=== PATIENT | female | born 1995 | race Caucasian/White ===

== ENCOUNTER 2016-06-24 10:12 | Emergency (ER) | payer OTHER ==
[~2016-06-24] VITALS: Ht 157.5 cm; Wt 54.4 kg
[2016-06-24 10:21] VITALS: BP 136/83
--- NOTE | 2016-06-24 11:26 | NUR ---
PT BIBA TO BED 4
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
--- NOTE | 2016-06-24 12:06 | NUR ---
Patient being evaluated by physician at bedside.
--- NOTE | 2016-06-24 12:19 | NUR ---
Patient w/c assisted to bathroom to provide UA.
--- NOTE | 2016-06-24 12:25 | NUR ---
Pt brought back from the restroom and did not provide a UA. Pt states "I accidently forgot to pee in the cup." x-ray made aware.
--- NOTE | 2016-06-24 12:36 | NUR ---
Patient taken to X-RAY via w/c.
--- NOTE | 2016-06-24 12:48 | NUR ---
Pt returned from x-ray and placed in bed 4.
[2016-06-24] MEDS ORDERED: BACITRACIN OINT 500 UNITS/GM PKT TP ONE (13:40)
--- NOTE | 2016-06-24 13:44 | NUR ---
Dr. Hernández re-evaluating patient at bedside.
[2016-06-24 14:12] VITALS: BP 114/73
--- NOTE | 2016-06-24 14:13 | NUR ---
Chart checked and completed. The patient's care was reviewed and supervised by Daniel Pizarro RN.
== END 2016-06-24 14:12 | disposition home or self-care (01) ==
LOC: MED 10:12
DX: S06.0X9A Concussion with loss of consciousness of unspecified duration, initial encounter (principal); S81.012A Laceration without foreign body, left knee, initial encounter; S93.401A Sprain of unspecified ligament of right ankle, initial encounter; S70.211A Abrasion, right hip, initial encounter; V89.2XXA Person injured in unspecified motor-vehicle accident, traffic, initial encounter; Y93.89 Activity, other specified; Y92.89 Other specified places as the place of occurrence of the external cause; Y99.8 Other external cause status

== ENCOUNTER 2018-02-02 00:10 | Inpatient (IN) | payer SELFPAY ==
[~2018-02-02] VITALS: Ht 160 cm; Wt 60.4 kg
[2018-02-02 00:10] VITALS: BP 120/85
--- NOTE | 2018-02-02 00:14 | NUR ---
PT JASON ALS. TAKEN TO BED 1
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
--- NOTE | 2018-02-02 01:30 | NUR ---
ASSUMED CARE OF PT AT THIS TIME. PT RESTING COMFORTABLY, CONVERSING NORMALLY W/ FAMILY AT BEDSIDE. PT AWAITS LAB RESULTS AND MD DISPOSITION. NAD. VSS. WILL CONTINUE TO MONITOR.
[2018-02-02 02:10] LABS: HEMATOCRIT 39.8 % (36-48); HEMOGLOBIN 12.9 g/dL (12.0-16.0); MEAN CORPUSCULAR HEMOGLOBIN 30 pg (27-31); MEAN CORPUSCULAR HGB CONC 33 g/dL (33-37); MEAN CORPUSCULAR VOLUME 91.4 fL (80-94); PLATELET COUNT (AUTO) 344 K/uL (140-450); RED BLOOD CELL COUNT(AUTO) 4.36 MIL/uL (4.20-5.40); WHITE BLOOD COUNT (AUTO) 21.8 K/uL (4.8-10.8)
[2018-02-02 02:15] LABS: ANION GAP 7.9 (8-16); CARBON DIOXIDE 29.3 mmol/L (21-32); CREATININE 1.2 mg/dL (0.6-1.3); POTASSIUM 3.2 mmol/L (3.5-5.1)
[2018-02-02 02:18] LABS: EOSINOPHILS % (MANUAL) 1 % (0-4); LYMPHOCYTES % (MANUAL) 13 % (20-46); MONOCYTES % (MANUAL) 4 % (5-12)
[2018-02-02 02:21] LABS: ALBUMIN 3.9 g/dL (3.4-5.0); TOTAL BILIRUBIN 0.3 mg/dL (0.0-1.0)
[2018-02-02] MEDS ORDERED: NACL 0.9% 1,000 ML IV ONE (02:40)
[2018-02-02] MEDS ORDERED: diphenhydrAMINE 50 MG CAP PO ONE (02:40)
[2018-02-02] MEDS ORDERED: DEXAMETHASONE 10 MG/ML VIAL IVP ONE (02:40)
[2018-02-02] MEDS ORDERED: FAMOTIDINE 20 MG TAB PO ONE (02:40)
[2018-02-02 02:52] LABS: APPEARANCE,URINE SL CLOUDY (CLEAR); BILIRUBIN,URINE NEGATIVE (NEGATIVE); BLOOD, URINE NEGATIVE (NEGATIVE); COLOR,URINE YELLOW (YELLOW); LEUKOCYTE ESTERASE ,URINE NEGATIVE (NEGATIVE); NITRITE, URINE NEGATIVE (NEGATIVE); UGLUCOSE NEGATIVE (NEGATIVE)
[2018-02-02] MEDS ORDERED: NACL 0.9% 1,000 ML IV SCH (02:56)
[2018-02-02] MEDS ORDERED: LORazepam 2 MG/ML VIAL IM/IVP PRN (03:00)
[2018-02-02] MEDS ORDERED: HYDROcodone/APAP 5/325 MG 1 TAB TAB PO PRN (03:00)
[2018-02-02] MEDS ORDERED: DOCUSATE SODIUM 100 MG GELCAP PO PRN (03:00)
[2018-02-02] MEDS ORDERED: MORPHINE SULFATE 2 MG/ML SYR IVP PRN (03:00)
[2018-02-02] MEDS ORDERED: ZOLPIDEM 5 MG TAB PO PRN (03:00)
[2018-02-02] MEDS ORDERED: ONDANSETRON 4 MG/2 ML VIAL IM/IVP PRN (03:00)
[2018-02-02] MEDS ORDERED: ACETAMINOPHEN 325 MG TAB PO PRN (03:00)
--- NOTE | 2018-02-02 03:45 | NUR ---
Patient will be admitted to [facility]. Admitted to ICU. Will go to room 3. Belongings list completed. Report to CHAPARRO BARTON.
--- NOTE | 2018-02-02 03:50 | NUR ---
PATIENT TRANSFERRED FROM ER TO ICU BED 5 VIA GURNEY WITH 2 ASSISTANCE. PATIENT AAO X4, VERBALLY RESPONSIVE. ABLE TO AMBULATE. NO ACUTE DISTRESS NOTED. NO SOB ON ROOM AIR AT THIS TIME. PERIPHERAL LINE TO LEFT AC 20G, NO S/S INFECTION, INTACT AND PATENT. SKIN IS CLEAN AND INTACT. WILL CONTINUE TO MONITOR.
[2018-02-02] MEDS ORDERED: FAMOTIDINE 20 MG TAB PO SCH (04:00)
[2018-02-02] MEDS ORDERED: POTASSIUM CHLORIDE 10 MEQ TABER PO SCH (04:00)
[2018-02-02 04:02] VITALS: BP 117/68
--- NOTE | 2018-02-02 04:11 | NUR ---
ADMINISTERED SCHEDULED MEDICATIONS ORDERED, TOLERATED WELL. NO ACUTE DISTRESS NOTED. WILL CONTINUE TO MONITOR.
[2018-02-02 04:59] LABS: CHOL/HDL RATIO 2.8 (1-4.5); MAGNESIUM 1.8 mg/dL (1.8-2.4); PHOSPHORUS 2.9 mg/dL (2.5-4.9); THYROID STIMULATING HORMONE 3.99 uIU/mL (0.34-3.74)
[2018-02-02 06:00] VITALS: BP 110/65
[2018-02-02 06:07] LABS: PROTHROMBIN TIME 10.2 secs (10.8-13.4)
[2018-02-02] MEDS ORDERED: PANTOPRAZOLE 40 MG TABEC PO SCH (06:30)
--- NOTE | 2018-02-02 07:10 | NUR ---
REPORT GIVEN TO MORNING SHIFT RN FOR CONTINUITY OF CARE.
--- NOTE | 2018-02-02 07:25 | NUR ---
RECEIVED REPORT FROM [facility] RN. PT RESTING IN BED A/O X4. ABLE TO MAKE NEEDS KNOWN. SR ON MONITOR. LUNGS CLEAR ON AUSCULTATION. LEFT AC 20G. INTACT. NS RUNNING AT 60 ML/HR. ABDOMEN SOFT, ROUND AND NON-TENDER. ACTIVE BOWEL SOUND. DENIES PAIN, N/V. DENIES ITCHING, SOB AT THIS TIME. SKIN INTACT. HOB ELEVATED. BED IN LOW POSITION LOCKED. CONTINUE ON BEDSIDE MONITOR.
[2018-02-02 08:00] VITALS: BP 97/61
--- NOTE | 2018-02-02 08:34 | NUR ---
PATIENT HAS BEEN SCREENED AND CATEGORIZED LOW NUTRITION RISK. PATIENT WILL BE SEEN WITHIN 7 DAYS OF ADMISSION. 02/08/[address]
--- NOTE | 2018-02-02 09:40 | NUR ---
PATIENT REFUSED BLOOD DRAW AT THIS TIME. SHE STATED "I WANT TO GO HOME BEFORE 12 NOON". RISKS AND BENEFITS DISCUSSED, STILL REFUSING. REFUSAL FOR MEDICAL TREATMENT SIGNED. RESIDENT PHYSICIAN, DR. CHEEK MADE AWARE.
--- NOTE | 2018-02-02 10:29 | NUR ---
PT EVALUATED BY DR. CHEEK. DR. CHEEK EXPLAINED PT ABOUT AMA. Addendum: 02/02/18 at 1035 by Yu Oconnor RN PT WILL GO AMA PER DR. CHEEK.
[2018-02-02 10:36] VITALS: BP 95/61
--- NOTE | 2018-02-02 10:44 | NUR ---
PT SIGNED AMA PAPER. MADE AWARE ABOUT RISKS AND BENEFITS OF RECEIVING AND REFUSING TREATMENT. PT VERBALIZED UNDERSTANDING. STILL WANTS TO LEAVE AMA. PT SIGNED AMA FORM, KEPT IN THE CHART.
[2018-02-02 12:10] LABS: HEMATOCRIT 38.3 % (36-48); HEMOGLOBIN 12.8 g/dL (12.0-16.0); LYMPHOCYTES # (AUTO) 0.5 K/uL (2.5-16.5); LYMPHOCYTES % (AUTO) 5.2 % (20.5-51.1); MEAN CORPUSCULAR HEMOGLOBIN 31 pg (27-31); MEAN CORPUSCULAR HGB CONC 33 g/dL (33-37); MEAN CORPUSCULAR VOLUME 91.3 fL (80-94); MONOCYTES % (AUTO) 0.4 % (1.7-9.3); NEUTROPHILS # (AUTO) 9.7 K/uL (1.8-7.7); NEUTROPHILS % (AUTO) 94.4 % (42.2-75.2); PLATELET COUNT (AUTO) 297 K/uL (140-450); RED BLOOD CELL COUNT(AUTO) 4.19 MIL/uL (4.20-5.40); RED CELL DISTRIBUTION WIDTH 13.2 % (11.6-13.7); WHITE BLOOD COUNT (AUTO) 10.3 K/uL (4.8-10.8)
[2018-02-02 12:35] LABS: ANION GAP 15.6 (8-16); CARBON DIOXIDE 23.1 mmol/L (21-32); CREATININE 1.1 mg/dL (0.6-1.3); POTASSIUM 4.7 mmol/L (3.5-5.1)
[2018-02-02 13:16] VITALS: BP 111/75
--- NOTE | 2018-02-02 13:18 | NUR ---
DR. CHEEK MADE AWARE ABOUT LACTIC ACID 2.6. DR. CHEEK INTO SEE PT EXPLAINED ABOUT LACTIC ACID RESULT. PT STILL DECIDED TO GO AMA.
--- NOTE | 2018-02-02 13:30 | NUR ---
PT LEFT ICU AT 1330 ACCOMPANIED BY MOTHER. AMBULATORY.
--- NOTE | 2018-02-02 13:33 | NUR ---
PATIENT LEFT AMA IN STABLE CONDITION, ACCOMPANIED BY MOTHER. ID BAND REMOVED.
--- NOTE | 2018-02-02 13:36 | NUR ---
SPOKE TO JAGJIT WALK[facility] TO SET UP TRANSPORT. Addendum: 02/02/18 at 1342 by Gaby Kyle RN [facility]
[2018-02-02] MEDS ORDERED: PROBIOTIC SCREEN 1 EA MISC MC PRN (13:45)
[2018-02-03 08:22] LABS: T4 (THYROXINE) 6.2 ug/dL (4.5-12.0)
== END 2018-02-02 13:33 | disposition left against medical advice (07) | DRG 916 ==
LOC: MED 00:10 → MIC 02:56
PROVIDERS: ADMIT General Practice; ATTEND General Practice
DX: T78.2XXA Anaphylactic shock, unspecified, initial encounter (principal); E87.1 Hypo-osmolality and hyponatremia; F12.90 Cannabis use, unspecified, uncomplicated; E87.6 Hypokalemia; E02 Subclinical iodine-deficiency hypothyroidism; Z53.21 Procedure and treatment not carried out due to patient leaving prior to being seen by health care provider
CPT/HCPCS: 36415; 71045; 80048; 80053; 81003; 82150; 82550; 83036; 83605; 83690; 83735; 83880; 84100; 84134; 84436; 84443; 85025; 85610; 85730; 87040; 87081; 93005; 96361; 96374; 99285; J1100; Q0092; Q0163